=== PATIENT | male | born 1975 | race African-American/Black ===

== ENCOUNTER 2022-09-06 22:28 | Emergency (ER) | payer SELFPAY ==
[~2022-09-06] VITALS: Ht 182.9 cm; Wt 100.0 kg
[~2022-09-06 22:28] MED LIST: ANTIVERT 25MG25 MG PO; LORTAB 5/500 501 TAB PO; NO HOME MEDICATIONS; VENTOLIN0.09 MG IH
[2022-09-06 22:35] VITALS: TEMP 98
[2022-09-06 22:54] LABS: BASO # 0.1 K/mm3 (0.0-0.2); EOS # 0.5 K/mm3 (0.0-0.7); EOS % 5.7 % (0.0-4.0); GRAN # 3.8 K/mm3 (1.4-6.5); GRAN % 46.6 % (42.2-75.2); HEMATOCRIT 51.2 % (42.0-52.0); HEMOGLOBIN 17.3 g/dl (13.5-18.0); LYMPH # 2.9 K/mm3 (1.2-3.4); LYMPH % 35.6 % (20.0-51.0); MEAN CELL VOLUME 82 fl (80.0-100.0); MEAN CORPUSCULAR HEMOGLOBIN 28 pg (27-31); MEAN CORPUSCULAR HGB CONC 34 g/dl (33.0-37.0); MEAN PLATELET VOLUME 9.8 fl (7.4-10.4); MONO # 0.9 K/mm3 (0.1-0.6); MONO % 10.9 % (1.7-9.3); PLATELET COUNT 198 K/mm3 (130-400); RED BLOOD COUNT 6.25 M/mm3 (4.20-5.60); REDCELL DISTRIBUTION WIDTH-CV 13.9 % (11.5-14.5)
[2022-09-06 23:14] LABS: ALANINE AMINOTRANSFERASE 27 U/L (0-55); ALBUMIN 4.1 gm/dL (3.5-5.0); ALKALINE PHOSPHATASE 91 U/L (40-150); ANION GAP 10 mmol/L (7-16); AST,SGOT 25 U/L (5-34); BILIRUBIN,TOTAL 0.7 mg/dL (0.2-1.2); BLOOD UREA NITROGEN 20 mg/dL (9-21); CALCIUM 9.1 mg/dL (8.4-10.2); CARBON DIOXIDE 21 mmol/L (22-29); CHLORIDE 106 mmol/L (98-107); CREATINE KINASE 364 U/L (30-200); CREATININE, serum 1.71 mg/dL (0.72-1.25); GLUCOSE 109 mg/dL (70-99); POTASSIUM 3.9 mmol/L (3.5-4.5); SODIUM 137 mmol/L (136-145); TOTAL PROTEIN 7.8 gm/dL (6.2-8.1)
[2022-09-06 23:21] LABS: TROPONIN-I < 0.010 ng/mL (0.00-0.033)
[2022-09-07 00:32] VITALS: BP 132/82; PULSE 82
== END 2022-09-07 00:19 | disposition home or self-care (01) ==
LOC: COL.ER 22:28
PROVIDERS: Emergency Medicine
DX: R00.2 Palpitations (principal); R79.89 Other specified abnormal findings of blood chemistry; F41.9 Anxiety disorder, unspecified; Z79.899 Other long term (current) drug therapy; Z28.310 Unvaccinated for COVID-19
CPT/HCPCS: J7030

== ENCOUNTER 2023-07-25 23:38 | Emergency (ER) | payer OTHER ==
[~2023-07-25] VITALS: Ht 180.3 cm; Wt 100.0 kg
[2023-07-25] MEDS ORDERED: Famotidine 20 MG TAB PO ONE (23:45)
[2023-07-26 00:28] LABS: BASO # 0.1 K/mm3 (0.0-0.2); BASO % 0.9 % (0.0-2.0); EOS # 0.4 K/mm3 (0.0-0.7); EOS % 4.7 % (0.0-4.0); GRAN # 3.6 K/mm3 (1.4-6.5); GRAN % 48.8 % (42.2-75.2); HEMATOCRIT 49.6 % (42.0-52.0); HEMOGLOBIN 16.8 g/dl (13.5-18.0); LYMPH # 2.5 K/mm3 (1.2-3.4); LYMPH % 33.8 % (20.0-51.0); MEAN CELL VOLUME 81 fl (80.0-100.0); MEAN CORPUSCULAR HEMOGLOBIN 28 pg (27-31); MEAN CORPUSCULAR HGB CONC 34 g/dl (33.0-37.0); MEAN PLATELET VOLUME 9.9 fl (7.4-10.4); MONO # 0.9 K/mm3 (0.1-0.6); MONO % 11.5 % (1.7-9.3); PLATELET COUNT 229 K/mm3 (130-400); RED BLOOD COUNT 6.12 M/mm3 (4.20-5.60); REDCELL DISTRIBUTION WIDTH-CV 16.1 % (11.5-14.5)
[2023-07-26 00:42] LABS: ALANINE AMINOTRANSFERASE 59 U/L (0-55); ALBUMIN 3.6 gm/dL (3.5-5.0); ALKALINE PHOSPHATASE 55 U/L (40-150); ANION GAP 10 mmol/L (7-16); AST,SGOT 38 U/L (5-34); BILIRUBIN,TOTAL 0.7 mg/dL (0.2-1.2); BLOOD UREA NITROGEN 15 mg/dL (9-21); CALCIUM 9.2 mg/dL (8.4-10.2); CARBON DIOXIDE 23 mmol/L (22-29); CHLORIDE 106 mmol/L (98-107); CREATININE, serum 1.56 mg/dL (0.72-1.25); GLUCOSE 94 mg/dL (70-99); LIPASE 43 U/L (8-78); POTASSIUM 4.3 mmol/L (3.5-4.5); SODIUM 139 mmol/L (136-145); TOTAL PROTEIN 6.6 gm/dL (6.2-8.1)
[2023-07-26 00:53] LABS: TROPONIN-I < 0.010 ng/mL (0.00-0.033)
[2023-07-26 02:56] VITALS: BP 133/79; PULSE 68; TEMP 98.2
== END 2023-07-26 03:00 | disposition home or self-care (01) ==
LOC: COL.ER 23:38
PROVIDERS: Emergency Medicine
DX: R07.89 Other chest pain (principal)